=== PATIENT | female | born 1970 | race Caucasian/White ===

== ENCOUNTER 2016-09-15 00:31 | Emergency (ER) | payer OTHER ==
[~2016-09-15] VITALS: Ht 160 cm; Wt 48.1 kg
[~2016-09-15 00:31] MED LIST: LORA1TAB82 PO
--- NOTE | 2016-09-15 00:55 | NUR ---
to bed 8 a 46 yo female bibself with c/o steppin joyce a nail with her right foot x6 hours ago. patient is aaox4, ambulatory. noted with pinpoint puncture on the right foot, no bleeding noted. vss. initiated comfort measures. initial wound care done.
--- NOTE | 2016-09-15 00:57 | NUR ---
Dr Lozada at bedside for eval.
[2016-09-15] MEDS ORDERED: CEFTRIAXONE 1 G VIAL IM ONE (01:00)
[2016-09-15] MEDS ORDERED: TDAP [DIPH/PERTUSSIS/TET] 0.5 ML VIAL IM ONE ×2 (01:00→01:02)
[2016-09-15] MEDS ORDERED: CEFTRIAXONE 1 G VIAL ONE (01:02)
[2016-09-15] MEDS ORDERED: LIDOCAINE /MPF 1% VIAL 5 ML VIAL ONE (01:03)
[2016-09-15] MEDS ORDERED: HYDROCODONE/APAP 5/325MG 1 EACH TABLET ONE (01:08)
[2016-09-15] MEDS ORDERED: ONDANSETRON 4 MG TAB.RAPDIS ONE (01:08)
[2016-09-15] MEDS ORDERED: ONDANSETRON 4 MG TAB.RAPDIS SL ONE (01:30)
[2016-09-15] MEDS ORDERED: HYDROCODONE/APAP 5/325MG 1 EACH TABLET PO ONE (01:30)
--- NOTE | 2016-09-15 01:42 | NUR ---
Patient discharged to home in stable condition. Written and verbal after care instructions given. Patient verbalizes understanding of instruction. Patient is ambulatory with a steady gait, no further complaints.
[2016-09-15 01:58] VITALS: BP 128/99
== END 2016-09-15 01:59 | disposition home or self-care (01) ==
LOC: ER 00:31
DX: S91.331A Puncture wound without foreign body, right foot, initial encounter (principal); F15.10 Other stimulant abuse, uncomplicated; F41.9 Anxiety disorder, unspecified; F10.10 Alcohol abuse, uncomplicated; F17.200 Nicotine dependence, unspecified, uncomplicated; W45.0XXA Nail entering through skin, initial encounter; Y93.89 Activity, other specified; Y92.89 Other specified places as the place of occurrence of the external cause; Y99.8 Other external cause status
CPT/HCPCS: 90715; A4606; A6402; J0696; J3490; Q0162; Z7610

== ENCOUNTER 2017-06-23 11:06 | Emergency (ER) | payer OTHER ==
[~2017-06-23 11:06] MED LIST changes: +LORA-259 PO; -LORA1TAB82 PO
--- NOTE | 2017-06-23 11:15 | NUR ---
PATIENT IS NOT IN ED WAITING ROOM, CALLED 3 TIMES. UNABLE TO TRIAGE PATIENT AT THIS TIME. WILL TRY AGAIN SHOORTLY.
--- NOTE | 2017-06-23 11:31 | NUR ---
PATIENT IS NOT IN ED WAITING ROOM, CALLED 3 TIMES. UNABLE TO TRIAGE PATIENT AT THIS TIME. WILL TRY AGAIN SHOORTLY. PATIENT LEFT WITHOUT BEING TRIAGED.
== END 2017-06-23 11:36 | disposition left against medical advice (07) ==
LOC: ER 11:08
DX: Z53.21 Procedure and treatment not carried out due to patient leaving prior to being seen by health care provider (principal)

== ENCOUNTER 2017-06-23 11:58 | Emergency (ER) | payer OTHER | END 2017-06-23 12:50 | disposition left against medical advice (07) | LOC: ER 11:59 | DX: Z53.21 Procedure and treatment not carried out due to patient leaving prior to being seen by health care provider (principal) ==

== ENCOUNTER 2017-06-26 12:40 | Emergency (ER) | payer OTHER ==
[~2017-06-26] VITALS: Ht 157.5 cm; Wt 47.6 kg
--- NOTE | 2017-06-26 12:52 | NUR ---
PATIENT IS NOT IN ED WAITING ROOM, UNABLE TO TRIAGE PATIENT AT THIS TIME. CALLED x 3 , NO RESPONSE. WILL TRY AGAIN SOON.
[2017-06-26 13:13] VITALS: BP 131/88
[2017-06-26] MEDS ORDERED: KETOROLAC TROMETHAMINE INJ 60 MG/2 ML VIAL IM ONE (13:30)
[2017-06-26] MEDS ORDERED: KETOROLAC TROMETHAMINE INJ 30 MG/ML VIAL ONE (13:34)
== END 2017-06-26 13:44 | disposition home or self-care (01) ==
LOC: ER 12:41
DX: M54.12 Radiculopathy, cervical region (principal); F41.9 Anxiety disorder, unspecified; G89.29 Other chronic pain; F10.10 Alcohol abuse, uncomplicated; F17.210 Nicotine dependence, cigarettes, uncomplicated; F15.10 Other stimulant abuse, uncomplicated
CPT/HCPCS: A4606; J1885; Z7610

== ENCOUNTER 2018-01-09 15:27 | Emergency (ER) | payer OTHER ==
[~2018-01-09] VITALS: Ht 157.5 cm; Wt 45.4 kg
[2018-01-09 16:00] VITALS: BP 121/91
[2018-01-09] MEDS ORDERED: NAPROXEN 500 MG TABLET PO ONE (17:00)
[2018-01-09] MEDS ORDERED: NAPROXEN 250 MG TABLET ONE (17:06)
--- NOTE | 2018-01-09 17:22 | NUR ---
Patient discharged to home in stable condition. Written and verbal after care instructions given. Patient verbalizes understanding of instruction. PT LEFT PRIOR TO RECEIVING NAPROSYN.
== END 2018-01-09 17:24 | disposition home or self-care (01) ==
LOC: ER 15:36
DX: J02.9 Acute pharyngitis, unspecified (principal); F41.9 Anxiety disorder, unspecified; F17.210 Nicotine dependence, cigarettes, uncomplicated; Z98.890 Other specified postprocedural states
CPT/HCPCS: 87070; 87880; 99284; 99406; A4606; Z7610; 86403-TC

== ENCOUNTER 2018-11-09 23:41 | Emergency (ER) | payer OTHER ==
[~2018-11-09] VITALS: Ht 157.5 cm; Wt 48.5 kg
--- NOTE | 2018-11-10 01:20 | NUR ---
[place] "SKIN SORES ALL OVER BODY" X 1 WEEK. PT AOX4. NAD NOTED. RESP EVEN AND UNLABORED. PT ON MONITOR IN BED 6. WILL CONTINUE TO MONITOR.
[2018-11-10] MEDS ORDERED: VANCOMYCIN 1 GM in IV D5W 250 ML IV ONE (01:30)
--- NOTE | 2018-11-10 01:41 | NUR ---
BLOOD DRAWN AND GIVEN TO LAB
[2018-11-10 01:44] LABS: BASOPHILS % (AUTO) 0.3 % (0.0-2.0); EOSINOPHILS % (AUTO) 0.2 % (0.0-6.0); HEMATOCRIT 37 % (33-45); HEMOGLOBIN 12.6 g/dL (11.5-14.8); LYMPHOCYTES # (AUTO) 1.8 /CMM (0.8-4.8); LYMPHOCYTES % (AUTO) 15.4 % (20.0-44.0); MEAN CORPUSCULAR HGB CONC 34 g/dl (31.0-36.0); MEAN CORPUSCULAR VOLUME 88 fL (82-100); MONOCYTES # (AUTO) 0.5 /CMM (0.1-1.30); MONOCYTES % (AUTO) 4.2 % (2.0-12.0); NEUTROPHILS # (AUTO) 9.4 /CMM (1.8-8.9); NEUTROPHILS % (AUTO) 79.9 % (43.0-81.0); PLATELET COUNT (AUTO) 297 /CMM (150-450); RED BLOOD CELL COUNT(AUTO) 4.17 MIL/uL (4.0-5.2); WHITE BLOOD COUNT (AUTO) 11.8 K/uL (4.3-11.0)
[2018-11-10 01:51] LABS: CALCIUM, SERUM 8.5 mg/dL (8.5-10.1); CARBON DIOXIDE 25 mmol/L (21-32); CHLORIDE 101 mmol/L (98-107); GLUCOSE 195 mg/dL (74-106); POTASSIUM 3.5 mmol/L (3.5-5.1); SODIUM SERUM 138 mmol/L (136-145); UREA NITROGEN, BLOOD 15 mg/dL (7-18)
[2018-11-10] MEDS ORDERED: VANCOMYCIN 1 GM VIAL ONE (01:54)
[2018-11-10 02:08] VITALS: BP 135/86
--- NOTE | 2018-11-10 02:32 | NUR ---
PT AMBULATED TO RESTROOM
--- NOTE | 2018-11-10 03:44 | NUR ---
AIV removed. Catheter intact and site benign. Pressure and 4x4 applied to site. No bleeding noted.Patient does not wish to proceed with medical care recommended by Dr. STOLL. Patient given information related to possible complications, up to and including , which could occur as a result of leaving the hospital at this time. Patient verbalizes understanding of risks involved due to leaving against medical advice. Patient has signed AMA form.
== END 2018-11-10 06:00 | disposition home or self-care (01) ==
LOC: ER 23:45
DX: L03.113 Cellulitis of right upper limb (principal); L03.116 Cellulitis of left lower limb; F17.210 Nicotine dependence, cigarettes, uncomplicated; Z59.0 Homelessness; Z79.899 Other long term (current) drug therapy
CPT/HCPCS: 36415; 80048; 83605; 85025; 87040 ×2; 96365; 99283; J3370; J7060

== ENCOUNTER 2019-09-21 07:25 | Emergency (ER) | payer OTHER ==
--- NOTE | 2019-09-21 07:25 | NUR ---
CALLED TO TRIAGE NO ANSWER.
--- NOTE | 2019-09-21 07:35 | NUR ---
CALLED TO TRIAGE NO ANSWER.
--- NOTE | 2019-09-21 07:42 | NUR ---
LEFT WITHOUT BEING TRIAGE.
--- NOTE | 2019-09-21 07:42 | NUR ---
CALLED TO TRIAGE NO ANSWER.
== END 2019-09-21 07:44 | disposition left against medical advice (07) ==
LOC: ER 07:27
DX: Z53.21 Procedure and treatment not carried out due to patient leaving prior to being seen by health care provider (principal)

== ENCOUNTER 2019-09-21 07:54 | Emergency (ER) | payer OTHER ==
[~2019-09-21] VITALS: Ht 157.5 cm; Wt 49.9 kg
[2019-09-21 07:55] VITALS: BP 135/89
--- NOTE | 2019-09-21 08:19 | NUR ---
AT BEDSIDE FOR EVAL.
== END 2019-09-21 08:40 | disposition home or self-care (01) ==
LOC: ER 07:54
DX: J06.9 Acute upper respiratory infection, unspecified (principal); Z20.828 Contact with and (suspected) exposure to other viral communicable diseases; Z59.0 Homelessness; Z79.899 Other long term (current) drug therapy; F41.9 Anxiety disorder, unspecified; F15.10 Other stimulant abuse, uncomplicated; R00.0 Tachycardia, unspecified; F17.290 Nicotine dependence, other tobacco product, uncomplicated

== ENCOUNTER 2021-01-31 20:16 | Emergency (ER) | payer OTHER ==
[~2021-01-31] VITALS: Ht 157.5 cm; Wt 52.6 kg
[2021-01-31 20:50] VITALS: BP 143/97
== END 2021-01-31 21:08 | disposition home or self-care (01) ==
LOC: ER 20:21
DX: Z00.8 Encounter for other general examination (principal); F17.200 Nicotine dependence, unspecified, uncomplicated; Z59.00 Homelessness unspecified; Z79.899 Other long term (current) drug therapy